=== PATIENT | female | born 1980 | race Caucasian/White ===

== ENCOUNTER 2022-10-01 11:17 | Emergency (ER) | payer OTHER ==
[~2022-10-01] VITALS: Ht 170.2 cm; Wt 97.5 kg
[2022-10-01 11:22] VITALS: BP_SYST 140
--- NOTE | 2022-10-01 11:25 | NUR ---
PT BIBA, AWAKE AND ALERT AOX4. NO SOB OR DISTRESS. PT C/O PALIPATION AND ANXIETY WHILE AT WORK. PT DENIES N/V OR PAIN. PT CO WORKER CALLED 911. PT HAS DX OF ANXIETY AND CURRENTLY ON BUSPIRONE BID. PT STATES SHE TOOK HER MEDS THIS MORNING.
--- NOTE | 2022-10-01 11:28 | NUR ---
MD DR PUCKETT AT BEDSIDE
[2022-10-01] MEDS ORDERED: LORazepam 1 MG TABLET PO ONE (11:30)
--- NOTE | 2022-10-01 11:40 | NUR ---
CXR AT BEDSIDE
[2022-10-01 11:49] LABS: BASOPHILS # (AUTO) 0.1 K/uL (0.0-0.2); BASOPHILS % (AUTO) 0.9 % (0.0-2.0); EOSINOPHILS # (AUTO) 0.3 K/uL (0.0-0.4); EOSINOPHILS % (AUTO) 2.1 % (0.0-4.0); HEMATOCRIT 35.6 % (36-48); HEMOGLOBIN 11.3 g/dL (12.0-16.0); MEAN CORPUSCULAR HEMOGLOBIN 23 pg (27-31); MEAN CORPUSCULAR HGB CONC 32 % (32-36); MEAN CORPUSCULAR VOLUME 72 fL (79.0-98.0); MONOCYTES # (AUTO) 0.6 K/uL (0.0-1.0); MONOCYTES % (AUTO) 4.4 % (1.7-9.3); NEUTROPHILS # (AUTO) 9.1 K/uL (1.8-7.7); NEUTROPHILS % (AUTO) 69.6 % (40.0-70.0); PLATELET COUNT (AUTO) 319 K/uL (130-430); RED BLOOD CELL COUNT(AUTO) 4.94 MIL/uL (4.2-6.2); RED CELL DISTRIBUTION WIDTH 18.5 % (9.0-15.0)
[2022-10-01 12:14] LABS: ANION GAP 13 (5-15); CALCIUM 9.1 mg/dL (8.4-11.0); CHLORIDE 101 mmol/L (98-107); CREATININE 0.77 mg/dL (0.55-1.30); GLUCOSE 128 mg/dL (70-99); UREA NITROGEN, BLOOD 12 mg/dL (8-21)
[2022-10-01 12:19] LABS: GFR AFRICAN AMERICAN 105 mL/min (>90)
[2022-10-01 12:33] LABS: ALANINE AMINOTRANSFERASE 14 U/L (12-78); ALBUMIN 3.8 g/dL (3.4-4.8); ASPARTATE AMINOTRANSFERASE 18 U/L (10-37); THYROID STIMULATING HORMONE 1.34 uIu/mL (0.36-3.74); TOTAL BILIRUBIN 0.7 mg/dL (0.0-1.0)
[2022-10-01 13:14] VITALS: BP_SYST 125
--- NOTE | 2022-10-01 13:15 | NUR ---
Patient given written and verbal discharge instructions and verbalizes understanding. ER MD DR PUCKETT discussed with patient the results and treatment provided. Patient in stable condition. ID arm band removed. Patient educated on pain management and to follow up with PMD. Pain Scale 0/10. Opportunity for questions provided and answered. Medication side effect fact sheet provided.
== END 2022-10-01 13:15 | disposition home or self-care (01) ==
LOC: SED 11:17
DX: R00.2 Palpitations (principal); F41.9 Anxiety disorder, unspecified; R06.02 Shortness of breath; Z79.899 Other long term (current) drug therapy
CPT/HCPCS: 36415; 71045; 80053; 81025; 84443; 84484; 85025; 93005; 99285